=== PATIENT | female | born 1935 | race Caucasian/White ===

== ENCOUNTER 2018-02-14 13:10 | Inpatient (IN) | payer MEDICARE ==
[~2018-02-14] VITALS: Ht 170.2 cm; Wt 88.0 kg
[~2018-02-14 13:10] MED LIST: NO HOME MEDS
[2018-02-14 13:17] LABS: BASOPHILS % (AUTO) 0.2 % (0-1); EOSINOPHILS # (AUTO) 0.2 X10'3 (0-0.9); EOSINOPHILS % (AUTO) 2.5 % (0-6); LYMPHOCYTES # (AUTO) 1.1 X10'3 (1.1-4.8); LYMPHOCYTES % (AUTO) 12.6 % (21-51); MEAN CORPUSCULAR VOLUME 88.1 FL (78-98); MEAN PLATELET VOLUME 7.4 FL (7.4-10.4); MONOCYTES # (AUTO) 0.6 X10'3 (0-0.9); MONOCYTES % (AUTO) 6.3 % (2-12); NEUTROPHILS % (AUTO) 78.4 % (42-75); PRE OP HEMATOCRIT 41.8 % (35.0-45.0); PRE OP HEMOGLOBIN 14.2 g/dL (12.0-16.0); PRE OP PLATELET COUNT 309 X10'3 (140-440); RED BLOOD COUNT 4.74 X10'6 (4.20-5.60); RED CELL DISTRIBUTION WIDTH 14.9 % (11.5-14.5)
[2018-02-14 13:19] LABS: CLARITY,URINE SLIGHTLY CLOUDY (Clear); COLOR,URINE YELLOW (Yellow); GLUCOSE, URINE NEGATIVE (Neg); KETONES,URINE TRACE mg/dl (Neg); LEUKOCYTE ESTERASE ,URINE NEGATIVE (Neg); NITRITES, URINE NEGATIVE (Neg); OCCULT BLOOD,URINE TRACE-INTACT (Neg); PH,URINE 5.5 (4.8-8.0); PROTEIN,URINE TRACE mg/dl (Neg); UROBILINOGEN,URINE 0.2 E.U/dL (0.2-1.0)
[2018-02-14 13:22] LABS: UA COLLECTION TYPE CLN CATCH MIDSTREAM
[2018-02-14 13:26] LABS: HYALINE CASTS 0-3 /LPF (NEGATIVE); MUCUS STRANDS MANY /LPF (Neg); SQUAMOUS EPITHELIAL CELL,UR MODERATE /LPF (FEW); TRANSITIONAL EPI CELLS,URINE FEW /HPF
[2018-02-14 13:28] LABS: BACTERIA,URINE FEW /HPF (Neg); WBC,URINE 0-4 /HPF (0-4)
[2018-02-14 13:32] LABS: ALBUMIN/GLOBULIN RATIO 1.1 (1.1-1.5); ALKALINE PHOSPHATASE 33 IU/L (46-116); BLOOD UREA NITROGEN 25 MG/DL (7-18); BUN/CREATININE RATIO 30.1 (6.6-38.0); CALCIUM 9.8 MG/DL (8.5-10.1); CHLORIDE 105 MMOL/L (99-107); CREATININE 0.83 MG/DL (0.40-0.90); PRE OP ALT 22 U/L (30-65); PRE OP ANION GAP 12 (8-16); PRE OP AST 13 U/L (10-37); PRE OP BILIRUB, TOTAL 0.6 MG/DL (0.0-1.0); PRE OP GLUCOSE 89 MG/DL (70-104); PRE OP POTASSIUM 4.2 MMOL/L (3.4-5.1); PRE OP SODIUM 142 MMOL/L (135-145); TOTAL CARBON DIOXIDE 25.1 MMOL/L (24-32); TOTAL PROTEIN 7.7 G/DL (6.4-8.2); eGFR 66 ML/MIN
[2018-02-21] VITALS (22 sets, daily range): BP systolic 95–153; BP diastolic 44–82
[2018-02-21] MEDS ORDERED: ringers solution, lacted 1,000 ML IV SCH ×2 (05:00→10:56)
[2018-02-21] MEDS ORDERED: famotidine 20mg tablet PO ONE (05:30)
[2018-02-21] MEDS ORDERED: gabapentin 300mg capsule PO ONE (05:30)
[2018-02-21] MEDS ORDERED: acetaminophen 325mg tablet PO ONE (05:30)
[2018-02-21] MEDS ORDERED: celeCOXIB 100mg capsule PO ONE (05:30)
[2018-02-21] MEDS ORDERED: ceFAZolin 2gm in dextrose, iso 100 ML IV ONE (05:30)
[2018-02-21] MEDS ORDERED: vancomycin inj 1,500 MG in normal saline 300ml IV soln IV ONE (05:30)
[2018-02-21] MEDS ORDERED: tranexamic acid inj. 1,000 MG in normal saline 100ml IV soln 90 ML IV ONE (05:30)
[2018-02-21] MEDS ORDERED: oxyCODONE SR 10mg (sust. release) tab PO ONE (05:30)
[2018-02-21] MEDS ORDERED: metoclopramide 5 mg/ml inj IV ONE (05:30)
[2018-02-21] MEDS ORDERED: HYDROcodone/acetaminophen 10/325mg tab PO PRN ×2 (07:10)
[2018-02-21] MEDS ORDERED: bisacodyl 10mg suppository rectal RC PRN (07:10)
[2018-02-21] MEDS ORDERED: diphenhydrAMINE 25mg capsule PO PRN ×2 (07:10)
[2018-02-21] MEDS ORDERED: acetaminophen 325mg tablet PO PRN (07:10)
[2018-02-21] MEDS ORDERED: magnesium hydroxide 30ml (MOM) UD suspension PO PRN (07:10)
[2018-02-21] MEDS ORDERED: MORPHINE 2MG in 2ml NS syringe IV PRN (07:10)
[2018-02-21] MEDS ORDERED: ondansetron/PF 4mg/2ml inj IV PRN ×3 (07:10→11:00)
[2018-02-21] MEDS: ascorbic acid 500mg tablet PO SCH ×2 (08:00→20:00)
[2018-02-21] MEDS: gabapentin 300mg capsule PO SCH ×3 (08:00→21:00)
[2018-02-21] MEDS: multivitamins, therapeutics tablet PO SCH (08:00)
[2018-02-21] MEDS ORDERED: cefazolin/dext.iso 2gm/50ml 50 ML IV SCH (08:00)
[2018-02-21] MEDS: aspirin 325mg tablet PO SCH (08:30)
[2018-02-21] MEDS ORDERED: cloNIDine hcl/PF 100mcg/ml inj ONE (09:08)
[2018-02-21] MEDS ORDERED: ROPIVAcaine 0.5% (5mg/ml) 30ml vial ONE (09:08)
[2018-02-21] MEDS ORDERED: ketorolac trometh. 30mg/ml inj. ONE (09:08)
[2018-02-21] MEDS ORDERED: vancomycin 1,000mg inj ONE (09:08)
[2018-02-21] MEDS ORDERED: epiNEPHrine 1 mg/ml inj ONE (09:08)
[2018-02-21] MEDS ORDERED: tetracaine 1% (10mg/ml) pres. free inj. ONE (09:23)
[2018-02-21] MEDS ORDERED: fentaNYL/PF 50MCG/1 ML 2ML syringe ONE (09:25)
[2018-02-21] MEDS ORDERED: MIDAZolam 1mg/ml 10ml vial ONE (09:25)
[2018-02-21] MEDS ORDERED: LIDOcaine 2% (20mg/ml) 5ml vial ONE (10:24)
[2018-02-21] MEDS ORDERED: propofol inj 40 ML IV ONE (10:24)
[2018-02-21] MEDS ORDERED: BUPIVAcaine/dex-water/PF 7.5 mg/ml 2ml ampul ONE (10:25)
[2018-02-21] MEDS ORDERED: diphenhydrAMINE 50 mg/ml inj IV PRN (10:55)
[2018-02-21] MEDS ORDERED: morphine 4 MG/ML inj SYRINge IV PRN ×2 (11:00)
[2018-02-21] MEDS ORDERED: hydrALAZINE 20mg/ml inj. IV PRN (11:00)
[2018-02-21] MEDS ORDERED: fentaNYL/PF 50MCG/1 ML 2ML syringe IV PRN ×2 (11:00)
[2018-02-21] MEDS ORDERED: labetalol 5mg/ml 20ml inj. IV PRN (11:00)
[2018-02-21] MEDS: potassium cl 20mEq in 1/2 NS 1,000 ML IV SCH ×2 (14:56→23:09)
[2018-02-21] MEDS: ceFAZolin 2gm in dextrose, iso 100 ML IV SCH (17:45)
[2018-02-21] MEDS: sennosides 8.6mg tablet PO SCH (21:00)
[2018-02-22] MEDS: ceFAZolin 2gm in dextrose, iso 100 ML IV SCH (00:28)
[2018-02-22] MEDS: potassium cl 20mEq in 1/2 NS 1,000 ML IV SCH ×3 (00:30→15:09)
[2018-02-22 02:30] VITALS: BP 104/51
[2018-02-22 06:00] VITALS: BP 113/75
[2018-02-22 06:20] LABS: BASOPHILS % (AUTO) 0.2 % (0-1); EOSINOPHILS # (AUTO) 0.2 X10'3 (0-0.9); EOSINOPHILS % (AUTO) 3.2 % (0-6); HEMATOCRIT 32.2 % (35.0-45.0); HEMOGLOBIN 10.6 g/dl (12.0-16.0); LYMPHOCYTES # (AUTO) 0.6 X10'3 (1.1-4.8); LYMPHOCYTES % (AUTO) 10.6 % (21-51); MEAN CORPUSCULAR HEMOGLOBIN 29.9 PG (27.0-31.0); MEAN CORPUSCULAR HGB CONC 32.9 % (33.0-36.5); MEAN CORPUSCULAR VOLUME 90.7 FL (78-98); MEAN PLATELET VOLUME 6.7 FL (7.4-10.4); MONOCYTES # (AUTO) 0.4 X10'3 (0-0.9); MONOCYTES % (AUTO) 6.5 % (2-12); NEUTROPHILS # (AUTO) 4.9 X10'3 (1.8-7.7); NEUTROPHILS % (AUTO) 79.5 % (42-75); PLATELET COUNT 222 X10'3 (140-440); RED BLOOD COUNT 3.55 X10'6 (4.20-5.60); WHITE BLOOD COUNT 6.1 X10'3 (4.5-11.0)
[2018-02-22 06:53] LABS: ANION GAP 6 (8-16); CHLORIDE 108 MMOL/L (99-107); POTASSIUM 4.4 MMOL/L (3.5-5.1); SODIUM 141 MMOL/L (135-145); TOTAL CARBON DIOXIDE 26.8 MMOL/L (24-32)
[2018-02-22] MEDS: gabapentin 300mg capsule PO SCH ×3 (08:00→19:53)
[2018-02-22] MEDS: ascorbic acid 500mg tablet PO SCH ×2 (08:33→19:54)
[2018-02-22] MEDS: multivitamins, therapeutics tablet PO SCH (08:33)
[2018-02-22] MEDS: aspirin 325mg tablet PO SCH (08:34)
[2018-02-22 10:00] VITALS: BP 149/73
[2018-02-22] MEDS ORDERED: ASPI-1 PO (10:16)
[2018-02-22 14:00] VITALS: BP 137/57
[2018-02-22 17:00] VITALS: BP 148/59
[2018-02-22] MEDS ORDERED: Protein Smoothie (high protein) 240ml (8oz) cup PO SCH (18:00)
[2018-02-22] MEDS: sennosides 8.6mg tablet PO SCH (19:54)
[2018-02-22 22:00] VITALS: BP 155/64
[2018-02-23 05:40] LABS: BASOPHILS # (AUTO) 0.1 X10'3 (0-0.2); BASOPHILS % (AUTO) 0.5 % (0-1); EOSINOPHILS # (AUTO) 0.4 X10'3 (0-0.9); EOSINOPHILS % (AUTO) 3.6 % (0-6); HEMATOCRIT 34.8 % (35.0-45.0); HEMOGLOBIN 11.8 g/dl (12.0-16.0); LYMPHOCYTES # (AUTO) 1.1 X10'3 (1.1-4.8); LYMPHOCYTES % (AUTO) 11.4 % (21-51); MEAN CORPUSCULAR HEMOGLOBIN 30.2 PG (27.0-31.0); MEAN CORPUSCULAR VOLUME 88.6 FL (78-98); MONOCYTES # (AUTO) 0.8 X10'3 (0-0.9); NEUTROPHILS # (AUTO) 7.5 X10'3 (1.8-7.7); NEUTROPHILS % (AUTO) 76.5 % (42-75); PLATELET COUNT 263 X10'3 (140-440); RED BLOOD COUNT 3.93 X10'6 (4.20-5.60); RED CELL DISTRIBUTION WIDTH 14.8 % (11.5-14.5); WHITE BLOOD COUNT 9.8 X10'3 (4.5-11.0)
[2018-02-23 06:00] VITALS: BP 138/66
[2018-02-23] MEDS: gabapentin 300mg capsule PO SCH (08:00)
[2018-02-23] MEDS: aspirin 325mg tablet PO SCH (08:29)
[2018-02-23] MEDS: ascorbic acid 500mg tablet PO SCH (08:29)
[2018-02-23] MEDS: multivitamins, therapeutics tablet PO SCH (08:29)
== END 2018-02-23 11:40 | disposition home or self-care (01) | DRG 470 ==
LOC: EDSTATUS 13:10 → PAS IN 02-21 06:50 → EDSTATUS 02-21 10:00 → ORTHO 4S 02-21 13:45
PROVIDERS: ADMIT Orthopaedic Surgery; ATTEND Orthopaedic Surgery
PROC: 0SRB06Z Replacement of Left Hip Joint with Oxidized Zirconium on Polyethylene Synthetic Substitute, Open Approach (ICD-10-PCS; principal; 2018-02-21 09:44)
DX: M16.12 Unilateral primary osteoarthritis, left hip (principal); I44.2 Atrioventricular block, complete; E66.9 Obesity, unspecified; Z68.30 Body mass index [BMI] 30.0-30.9, adult; D62 Acute posthemorrhagic anemia; T41.3X5A Adverse effect of local anesthetics, initial encounter; I10 Essential (primary) hypertension; Z96.641 Presence of right artificial hip joint; Z72.89 Other problems related to lifestyle; Z79.82 Long term (current) use of aspirin; Z88.2 Allergy status to sulfonamides; Z88.8 Allergy status to other drugs, medicaments and biological substances; Y92.238 Other place in hospital as the place of occurrence of the external cause
CPT/HCPCS: 36415; 71046; 72170; 80051; 80053; 81001; 85025; 85610; 85730; 86885; 86900; 86901; 87070; 93005; 97110; 97116; 97162; 97530; A4615; A6258; A7000; C1758; C1776; J0171; J0690; J0735; J1885; J2001; J2250; J2405; J2704; J2765; J2795; J3010; J3370; J3490; J7030; J7120